=== PATIENT | male | born 1990 | race African-American/Black ===

== ENCOUNTER 2016-12-17 12:32 | Emergency (ER) | payer BC ==
[2016-12-17] MEDS ORDERED: Ketorolac 60 MG/2 ML SDV IM ONE (13:12)
--- NOTE | 2016-12-17 13:19 | EDM.PDOC ---
ED HPI GENERAL MEDICAL PROBLEM - General Chief Complaint: Back Pain or Injury Stated Complaint: BACK PAINS Time Seen by Provider: 12/17/16 13:05 - History of Present Illness INITIAL COMMENTS - FREE TEXT/NARRATIVE: HISTORY AND PHYSICAL: History of present illness: The patient is a healthy 26-year-old male who has no significant past medical history presents with complaints to the muscle area of his left lower back that started 2 days ago when he fell playing soccer. According to the patient he was playing soccer and he went to make a kick and he came down hard on the ground on the muscles of his left lower back. He has no midline pain and he did not pass out or black out and has no head or neck pain. He says the muscles in this area have been swollen and sore since that time area he has no rib pain no pelvis pain and no bony back pain. The pain is worse with certain movements and he tried some [id number] medications but not like it helped. The pain does not radiate to his legs he is no bowel or bladder disturbances and no neurosensory changes in his legs. There is no chest pain or shortness of breath. With the accident the patient that his head pass out or black out and has no head or neck pain Review of systems: As per history of present illness and below otherwise all systems reviewed and negative. Past medical history: As per history of present illness and as reviewed below otherwise noncontributory. Surgical history: As per history of present illness and as reviewed below otherwise noncontributory. Social history: No reported history of drug or alcohol abuse. Family history: As per history of present illness and as reviewed below otherwise noncontributory. Physical exam: General: Well-developed well-nourished man who is nontoxic but looks uncomfortable with movement but is speaking clearly and easily and moves well in the ED. HEENT: Atraumatic, normocephalic, negative for conjunctival pallor or scleral icterus, mucous membranes moist, throat clear, neck supple, nontender, trachea midline. There are no midline step-offs or defects the cervical spine Lungs: Clear to auscultation, breath sounds equal bilaterally, chest nontender. There is no rib pain either anteriorly or posteriorly on the left side and there is no defects or deformities or crepitus appreciated Heart: S1S2, regular, negative for clicks, rubs, or JVD. Abdomen: Soft, nondistended, nontender. NABS Negative for costovertebral tenderness. Pelvis: Stable nontender. No SI joint or posterior pelvis tenderness Genitourinary: Deferred. Rectal: Deferred. Extremities: Atraumatic, full range of motion without defects or deficits negative for cords or calf pain. Neurovascular unremarkable. Neuro: Awake, alert, oriented. Cranial nerves II through XII unremarkable. Cerebellum unremarkable. Motor and sensory unremarkable throughout. Exam nonfocal. Back: There are no midline step-offs tenderness or defects the thoracic or lumbar spine no posterior rib or posterior pelvis tenderness but on palpation of the left lumbar paraspinal area there is exquisite tenderness on palpation of the skin with some soft tissue swelling appreciated but no ecchymosis or skin defects Diagnostics: [] Therapeutics: Toradol Impression: Left thoraco/lumbar soft tissue contusion status post fall Definitive disposition and diagnosis as appropriate pending reevaluation and review of above. Left Lower Back Pain Score (Numeric/FACES): 10 - Related Data Allergies Allergy/AdvReac Type Severity Reaction Status Date / Time No Known Allergies Allergy Verified 12/17/16 12:47 Home Meds: Home Meds . [No Known Home Meds] 12/17/16 [History] Past Medical History - Past Health History Medical/Surgical History: Denies Medical/Surgical History Social & Family History - Family History Family Medical History: Noncontributory - Tobacco Use Smoking Status *Q: Never Smoker - Caffeine Use Caffeine Use: Reports: None - Recreational Drug Use Recreational Drug Use: No ED ROS GENERAL - Review of Systems Review Of Systems: ROS reveals no pertinent complaints other than HPI. ED EXAM, GENERAL - Physical Exam Exam: See Below Course - Vital Signs Last Recorded V/S: Last Vital Signs Temp 36.9 C 12/17/16 12:45 Pulse 67 12/17/16 12:45 Resp 16 12/17/16 12:45 BP 120/68 12/17/16 12:45 Pulse Ox 96 12/17/16 12:45 - Orders/Labs/Meds Orders: Active Orders 24 hr Category Date Time Status Ketorolac [Toradol] Med 12/17/16 13:12 Once 60 mg IM ONETIME ONE Departure - Departure Time of Disposition: 13:20 Disposition: Home, Self-Care 01 Condition: good Clinical Impression: Contusion of back Qualifiers: Encounter type: initial encounter Laterality: left Qualified Code(s): S20.222A - Contusion of left back wall of thorax, initial encounter - Discharge Information Forms: ED Department Discharge Additional Instructions: The following information is given to patients seen in the emergency department who are being discharged to home. This information is to outline your options for follow-up care. We provide all patients seen in our emergency department with a follow-up referral. The need for follow-up, as well as the timing and circumstances, are variable depending upon the specifics of your emergency department visit. If you don't have a primary care physician on staff, we will provide you with a referral. We always advise you to contact your personal physician following an emergency department visit to inform them of the circumstance of the visit and for follow-up with them and/or the need for any referrals to a consulting specialist. The emergency department will also refer you to a specialist when appropriate. This referral assures that you have the opportunity for followup care with a specialist. All of these measure are taken in an effort to provide you with optimal care, which includes your followup. Under all circumstances we always encourage you to contact your private physician who remains a resource for coordinating your care. When calling for followup care, please make the office aware that this follow-up is from your recent emergency room visit. If for any reason you are refused follow-up, please contact the [facility] emergency department at and ask to speak to the emergency department charge nurse. [facility] Primary care- Internal Medicine and Family [address] [address] Use ice to area as needed and after activities and take medications as needed and as prescribed. These connect to follow up with one of our clinic doctors for further care and evaluation and return here as needed and as discussed - My Orders Last 24 Hours: My Active Orders 12/17/16 13:12 Ketorolac [Toradol] 60 mg IM ONETIME ONE - Assessment/Plan Last 24 Hours: My Active Orders 12/17/16 13:12 Ketorolac [Toradol] 60 mg IM ONETIME ONE
== END 2016-12-17 13:38 | disposition home or self-care (01) ==
LOC: MW.ED 12:32
DX: S20.222A Contusion of left back wall of thorax, initial encounter (principal); S30.0XXA Contusion of lower back and pelvis, initial encounter; W18.39XA Other fall on same level, initial encounter; Y93.66 Activity, soccer
CPT/HCPCS: 96372; 99283; J1885